=== PATIENT | female | born 1995 | race Hispanic/Latino ===

== ENCOUNTER 2019-03-11 21:32 | Emergency (ER) | payer OTHER ==
[2019-03-11 21:41] VITALS: BP 116/75; RESP 16; TEMP 98.3
--- NOTE | 2019-03-11 23:18 | ED PDOC ---
HPI: Chest Pain Time Seen by Provider: 03/11/19 23:03 Chief Complaint (Nursing): Chest Pain Chief Complaint (Provider): Chest pain History Per: Patient History/Exam Limitations: no limitations Onset/Duration Of Symptoms: Mins (duration: 5 mins. resolved spontaneously) Current Symptoms Are (Timing): Gone Now Severity: Moderate Associated Symptoms: Dyspnea (mild), Other (mild dizziness) Additional Complaint(s): 24 year old female with no pertinent past medical history presents to the ED for an evaluation of central chest pain that sometimes radiates to the left arm that occurred for 5x minutes and resolved spontaneously prior to arrival. Patient reports having associated dizziness and mild difficulty breathing. Patient reports having a similar pain with a different location yesterday (pain was more to the left mid axillary area). Patient believes that this pain is associated with stress. 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 Patient denies smoking, drug use, oral contraceptive use, and history of blood clots. Patient reports that in the past she was told she had an arrhythmia, but did not follow up about it. Patient is unclear as to what arrhythmia or known triggers. PMD: None provided Past Medical History Reviewed: Historical Data, Nursing Documentation, Vital Signs Vital Signs: Last Vital Signs Temp 98.3 F 03/11/19 21:36 Pulse 83 03/11/19 21:36 Resp 16 03/11/19 21:36 BP 116/75 03/11/19 21:36 Pulse Ox 100 03/11/19 21:36 KATI Report Viewed: Yes - Medical History PMH: No Chronic Diseases Other PMH: patient told she had an arrhythmia, unsure what arrhythmia or known trigger - Surgical History Surgical History: No Surg Hx - Family History Family History: States: No Known Family Hx - Social History Current smoker - smoking cessation education provided: No Drugs: Denies - Allergies Allergies/Adverse Reactions: Allergies Allergy/AdvReac Type Severity Reaction Status Date / Time No Known Allergies Allergy Verified 03/11/19 21:36 Review of Systems ROS Statement: Except As Marked, All Systems Reviewed And Found Negative Cardiovascular: Positive for: Chest Pain (central, radiates to left arm. occurred for 5x minutes, spontaneously resolved.) Respiratory: Positive for: Shortness of Breath (mild) Physical Exam - Reviewed Nursing Documentation Reviewed: Yes Vital Signs Reviewed: Yes - Physical Exam Appears: Positive for: Well, Non-toxic, No Acute Distress Head Exam: Positive for: ATRAUMATIC, NORMOCEPHALIC Skin: Positive for: Normal Color, Warm, Dry. Negative for: Diaphoresis Eye Exam: Positive for: Normal appearance, EOMI, PERRL Neck: Positive for: Normal, Painless ROM, Supple Cardiovascular/Chest: Positive for: Regular Rate, Rhythm, Chest Non Tender Respiratory: Positive for: Normal Breath Sounds. Negative for: Respiratory Distress Gastrointestinal/Abdominal: Positive for: Normal Exam, Soft. Negative for: Tenderness Extremity: Positive for: Normal ROM Neurological/Psych: Positive for: Awake, Alert, Oriented (3x) - Laboratory Results Result Diagrams: 03/11/19 23:30 03/11/19 23:30 - ECG ECG: Positive for: Interpreted By Me, Viewed By Me ECG Rhythm: Negative for: ST/T Changes Interpretation Of Abn EKG: sinus arrhythmia at 70 beats per minute. (-) acute ST/T changes. O2 Sat by Pulse Oximetry: 100 (RA) Pulse Ox Interpretation: Normal Medical Decision Making Medical Decision Makin:03 Initial impression: Atypical chest discomfort in an otherwise healthy 24 year old female. Heart score: 1 Given long duration of flight yesterday, patient will be given d-dimer * Xray chest 2 views * EKG * b-type natriuretic peptide * CMP * drug screen urinary * troponin I * udip * upreg * CBC with differential * d-dimer * PT and PTT * reevaluation labs were reviewed and unremarkable EKG and CXR unremarkable Patient was asymptomatic on re-evaluation Stable for DC and outpatient workup given low risk score, unremarkable labs and diagnostics, normal vitals and asymptomatic in ED. Referred to PMD commissioner of relocation services. ScribeAttestation: Documented Ernestine Jaime, acting as a scribe for Zachary Dennison III, DO. Provider ScribeAttestation: All medical record entries made by the Scribe were at my direction and personally dictated by me. I have reviewed the chart and agree that the record accurately reflects my personal performance of the history, physical exam, medical decision making, and the department course for this patient. I have also personally directed, reviewed, and agree with the discharge instructions and disposition. Disposition - Clinical Impression Clinical Impression: Chest pain - Patient ED Disposition Is Patient to be Admitted: No Counseled Patient/Family Regarding: Studies Performed, Diagnosis, Need For Followup - Disposition Referrals: Anton Mackenzie MD [Staff Provider] - Disposition: Routine/Home Disposition Time: 23:45 Condition: STABLE Additional Instructions: Followup with PMD for further testing. Return to ER for any return of symptoms, new symptoms, or any concern. Instructions: Chest Pain Forms: [employer] ([place])
[2019-03-11 23:42] LABS: BASO % 0.5 % (0.0-2.0); EOS # 0.2 K/uL (0.0-0.7); EOS % 3.7 % (0.0-4.0); HEMOGLOBIN 11.6 g/dL (12.0-16.0); LYMPH % 17.2 % (20.0-40.0); MEAN CORPUSCULAR HEMOGLOBIN 30.2 pg (27.0-31.0); MEAN CORPUSCULAR HGB CONC 32.8 g/dL (33.0-37.0); MEAN PLATELET VOLUME 7.8 fl (7.2-11.7); MONO # 0.4 K/uL (0.0-0.8); MONO % 7.8 % (0.0-10.0); NEUT % 70.8 % (50.0-75.0); RBC 3.85 Mil/uL (3.80-5.20); RED CELL DISTRIBUTION WIDTH 12.7 % (11.5-14.5); WHITE BLOOD COUNT 5.7 K/uL (4.8-10.8)
[2019-03-11 23:47] LABS: INR 1.2; PROTHROMBIN TIME 13.4 Seconds (9.8-13.1)
[2019-03-11 23:50] LABS: PARTIAL THROMBOPLASTIN TIME 28.1 Seconds (25.6-37.1)
[2019-03-11 23:56] LABS: ALB/GLOB RATIO 1.7 (1.0-2.1); ALBUMIN 4.6 g/dL (3.5-5.0); ALT/SGPT 27 U/L (9-52); AST/SGOT 23 U/L (14-36); BLOOD UREA NITROGEN 14 mg/dl (7-17); CALCIUM 9.6 mg/dL (8.4-10.2); GFR NON-AFRICAN AMERICAN > 60
[2019-03-12 00:08] LABS: B-TYPE NATRIURETIC PEPTIDE 29.7 pg/ml (0-450)
[2019-03-12 00:34] LABS: D DIMER < 200 ng/mlDDU (0-230)
--- NOTE | 2019-03-12 00:39 | ED PDOC ---
- Laboratory Results Result Diagrams: 03/11/19 23:30 03/11/19 23:30 Lab Results: PT 13.4 Seconds (9.8-13.1) H 03/11/19: INR 1.2 03/11/19: APTT 28.1 Seconds (25.6-37.1) 03/11/19: D-Dimer, Quantitative < 200 ng/mlDDU (0-230) 03/11/19: Troponin I < 0.0120 ng/mL (0.00-0.120) 03/11/19: NT-Pro-B Natriuret Pep 29.7 pg/ml (0-450) 03/11/19: Total Bilirubin 0.5 mg/dl (0.2-1.3) 03/11/19: AST 23 U/L (14-36) 03/11/19: ALT 27 U/L (9-52) 03/11/19: Alkaline Phosphatase 45 U/L (38-126) 03/11/19: Total Protein 7.4 G/DL (6.3-8.2) 03/11/19 23: Albumin 4.6 g/dL (3.5-5.0) 03/11/19: Globulin 2.8 gm/dL (2.2-3.9) 03/11/19 23: Albumin/Globulin Ratio 1.7 (1.0-2.1) 03/11/19 23:30 - ECG O2 Sat by Pulse Oximetry: 100 (RA) Medical Decision Making Medical Decision Makin:00 Patient signed out to me by Zachary Dennison III, DO pending XRay chest and reevaluation. ScribeAttestation: Documented Ernestine Jaime, acting as a scribe for Zachary Dong MD. Provider ScribeAttestation: All medical record entries made by the Scribe were at my direction and personally dictated by me. I have reviewed the chart and agree that the record accurately reflects my personal performance of the history, physical exam, medical decision making, and the department course for this patient. I have also personally directed, reviewed, and agree with the discharge instructions and disposition. Disposition - Disposition Forms: [employer] ([place]) [employer] ([place])
[2019-03-12 03:10] VITALS: PULSE 81
--- NOTE | 2019-03-12 09:39 | CARD ---
APPROVED REPORT Date of service: 03/11/2019 EKG Measurement Heart [id number] <Conclusion> Normal sinus rhythm with sinus arrhythmia Normal ECG
--- NOTE | 2019-03-12 10:03 | RAD ---
Date of service: 03/12/2019 HISTORY: chest pain/ r/o infiltrate COMPARISON: No prior. TECHNIQUE: Chest PA and lateral views FINDINGS: LUNGS: No active pulmonary disease. PLEURA: No significant pleural effusion identified. No pneumothorax apparent. CARDIOVASCULAR: No aortic atherosclerotic calcification present. Normal cardiac size. No pulmonary vascular congestion. OSSEOUS STRUCTURES: No significant abnormalities. VISUALIZED UPPER ABDOMEN: Normal. OTHER FINDINGS: None. IMPRESSION: No active disease.
[2019-03-12 15:18] VITALS: O2SAT 100
== END 2019-03-12 00:58 | disposition home or self-care (01) ==
LOC: H.ER 21:32
DX: R07.9 Chest pain, unspecified (principal)